=== PATIENT | female | born 1955 ===

== ENCOUNTER 2016-09-08 13:42 | Emergency (ER) | payer OTHER ==
[2016-09-08 14:08] VITALS: BMI 24.3
[2016-09-08 14:14] VITALS: BP 134/79; PULSE 93; RESP 20; TEMP 98.2; O2SAT 98
--- NOTE | 2016-09-08 14:28 | C.PDOC ---
History Of Present Illness 61 year old female with PMHx of HLD and DM presents with complaint of right foot pain that has worsened x3 days. Patient had right foot osteotomy in two locations on 07/11/[address] Riley. She has been following up with Dr Riley regularly and had the CHALO bandage changed on 09/05. She believes the dressing was wrapped too tightly and that is why she is having pain. She admits that she gets pain in her foot regularly due to her diabetic neuropathy. She states that she has been taking Ibuprofen daily for her pain but that over the past 3 days she has had worsening anterior right foot burning. Last night the patient says she had a subjective fever. Patient became concerned of infection underneath the cast so she came to the ED. Denies chills, nausea, vomiting, calf pain, numbness, tingling, headache, dizziness, chest pain, palpitations, and SOB. All other ROS negative. Patient's next appointment with Dr Riley is on 09/12/16. (April Adams) History Per: Patient, Family (daughter at bedside) History/Exam Limitations: no limitations Onset/Duration Of Symptoms: Days Current Symptoms Are (Timing): Still Present Severity: Moderate Pain Scale Rating Of: 8 Recent travel outside of the [place]: No Additional History Per: Family (daughter) - Ankle/Foot Description Of Injury: Other (s/p surgery ) Time Seen by Provider: 09/08/16 13:54 Chief Complaint (Nursing): Lower Extremity Problem/Injury Past Medical History - Medical History PMH: Arthritis, Diabetes, Hypercholesterolemia Denies: Chronic Kidney Disease Surgical History: Family History: States: Unknown Family Hx - Social History Hx Tobacco Use: No Hx Alcohol Use: No Hx Substance Use: No - Immunization History Hx Tetanus Toxoid Vaccination: Yes Hx Influenza Vaccination: Yes Hx Pneumococcal Vaccination: No Vital Signs: Last Vital Signs Temp 98.2 F 09/08/16 14:11 Pulse 93 H 09/08/16 14:11 Resp 20 09/08/16 14:11 BP 134/79 09/08/16 14:11 Pulse Ox 98 09/08/16 14:39 - [facility] Procedures MEASURE OF CARDIAC SAMPL & PRESSURE, L HEART, PERC APPROACH (04/18/16) PLAIN RADIOGRAPHY OF LEFT HEART USING OTHER CONTRAST (04/18/16) PLAIN RADIOGRAPHY OF MULT COR ART USING OTH CONTRAST (04/18/16) Review Of Systems Except As Marked, All Systems Reviewed And Found Negative. Musculoskeletal: Positive for: Foot Pain (right anterior foot pain, toe pain ) Physical Exam - Physical Exam Appears: Well, Non-toxic, No Acute Distress Skin: Normal Color, Warm, Dry Head: Atraumatic, Normacephalic Eye(s): bilateral: Normal Inspection, PERRL, EOMI Oral Mucosa: Moist Throat: Normal Cardiovascular: Rhythm Regular Respiratory: Normal Breath Sounds Back: Normal Inspection Extremity: Normal ROM, No Pedal Edema, No Swelling, Other (Right lower extremity initially wrapped in dressing, dry and intact. Dressing removed- right anterior foot dry, no open wounds, no lesions, surgery incision sites dry and intact, no drainage, no swelling, no erythema, sensation to light touch intact, tenderness to palpation of anterior foot, 2+ pedal pulses, warm to touch , no erythema, no swelling of right calf, negative Nia's sign) Pulses: Right Dorsalis Pedis: Normal Neurological/Psych: Oriented x3, Normal Speech, Normal Cognition Pain Response: Withdraws With Pain ED Course And Treatment O2 Sat by Pulse Oximetry: 98 Progress Note: Dressing unwrapped, lower extremity examined and loosely re- wrapped with clean dressing. Patient's pain improved after dressing changed. Reevaluation Time: 14:35 Reassessment Condition: Improved Medical Decision Making Medical Decision Making: Seen and examined with resident. Foot pain after surgery, has f/u soon, wound appears well healing without infection. (Chip Alan) Disposition Discussed With : Chip [facility] Doctor Will See Patient In The: Office Counseled Patient/Family Regarding: Diagnosis, Need For Followup - Disposition Disposition Time: 14:36 - POA Present On Arrival: None - Disposition Referrals: Guillermina Riley DPM [Staff Provider] - Disposition: HOME/ ROUTINE Additional Instructions: Patient is to see Dr Riley in her office on Monday09/12/16. She should take Ibuprofen for her pain. Patient advised to keep extremity dressing loose as the tighter dressing will cause her pain. If patient experiences recurrence of her symptoms or has any other concerns she should return to the ED. Instructions explained to the patient who understands. Forms: Gen Discharge Inst Malawian Print Language: YAKUT - Clinical Impression Clinical Impression: Pain
== END 2016-09-08 15:13 | disposition home or self-care (01) ==
LOC: C.ER 13:42
DX: M79.671 Pain in right foot (principal); Z48.01 Encounter for change or removal of surgical wound dressing

== ENCOUNTER 2016-10-04 08:39 | Day surgery (SDC) | payer SELFPAY ==
[2016-10-04 09:25] VITALS: BMI 25.8
[2016-10-04] MEDS ORDERED: Midazolam 2 MG/2 ML VIAL ONE (09:44)
[2016-10-04] MEDS ORDERED: Propofol 10 mg/ml Inj (20 ML) ONE ×3 (09:44→10:53)
[2016-10-04 09:46] VITALS: RESP 16; TEMP 98; O2SAT 100
--- NOTE | 2016-10-04 10:17 | CP.SDSHP ---
Same Day Surgery H & P - History Proposed Procedure: EGD. Colonoscopy Pre-Op Diagnosis: epigastric pain. screening for colon cancer - Previous Medical/Surgical History Cardiac: Hypertension Endocrine/Metabolic: Diabetes - Allergies Allergies: Allergies No Known Allergies Allergy (Verified 09/08/16 14:08) - Current Medications Current Medications: see med list - Physical Exam General Appearance: NAD Vital Signs: Vital Signs 10/04/16 09:42 Temperature 98 F Pulse Rate 76 Respiratory 16 Rate Blood Pressure 134/69 O2 Sat by Pulse 100 Oximetry Mental Status: Alert & Oriented x3 Heart: WNL Lungs: WNL GI: WNL - {Optional Preform as Required} Abdomen: WNL - Impression Impression: 61 year old female with h/o HTN, DM here for evaluation of dyspepsia and screening for colon cancer Pt. Evaluated Today:Candidate for Anesthesia & Procedure: Yes - Date & Time Date: 10/04/16 Time: 10:17 Short Stay Discharge - Short Stay Discharge Admitting Diagnosis/Reason for Visit: EPIGASTRIC PAIN,ENCOUNTER FOR SCREENING FOR MALIGN Disposition: HOME/ ROUTINE
[2016-10-04] MEDS ORDERED: Lactated Ringer's 500 ML IV ONE (10:28)
[2016-10-04 12:16] VITALS: BP 129/69; PULSE 73
== END 2016-10-04 12:20 | disposition home or self-care (01) ==
LOC: C.ENDO 08:39
PROVIDERS: ATTEND Internal Medicine Gastroenterology
DX: K21.0 Gastro-esophageal reflux disease with esophagitis (principal); K29.50 Unspecified chronic gastritis without bleeding; K29.80 Duodenitis without bleeding; Z12.11 Encounter for screening for malignant neoplasm of colon; D12.4 Benign neoplasm of descending colon
CPT/HCPCS: 43239; 45380; 82948; 88305; 88312; 88342; J2001; J2250; J2704; J7120

== ENCOUNTER 2016-11-04 09:45 | Emergency (ER) | payer OTHER ==
[2016-11-04 09:45] VITALS: BMI 25.8
--- NOTE | 2016-11-04 11:06 | C.PDOC ---
History Of Present Illness 61-year-old female, PMHx includes Arthritis and Diabetes, presents to the emergency department with complaints of worsening right foot swelling for the past four months. Patient is s/p bunion surgery, and has been following with internal combustion engine assembler on monthly basis. Patient states internal combustion engine assembler is aware of swelling, but it has worsened over the past three days, resulting in her coming to the ED for evaluation. Denies numbness/weakness, any new trauma, erythema, bleeding, discharge, or any other associated symptoms. No other complaints at this time. Time Seen by Provider: 11/04/16 10:51 Chief Complaint (Nursing): Lower Extremity Problem/Injury History Per: Patient History/Exam Limitations: no limitations Onset/Duration Of Symptoms: Days Current Symptoms Are (Timing): Still Present Severity: Moderate Past Medical History Reviewed: Historical Data, Nursing Documentation, Vital Signs Vital Signs: Last Vital Signs Temp 98.0 F 11/04/16 12:29 Pulse 77 11/04/16 12:29 Resp 16 11/04/16 12:29 BP 147/80 11/04/16 12:29 Pulse Ox 100 11/04/16 12:29 - Medical History PMH: Arthritis, Diabetes, Hypercholesterolemia Denies: Chronic Kidney Disease Surgical History: - [facility] Procedures MEASURE OF CARDIAC SAMPL & PRESSURE, L HEART, PERC APPROACH (04/18/16) PLAIN RADIOGRAPHY OF LEFT HEART USING OTHER CONTRAST (04/18/16) PLAIN RADIOGRAPHY OF MULT COR ART USING OTH CONTRAST (04/18/16) Family History: States: Unknown Family Hx - Social History Hx Tobacco Use: No Hx Alcohol Use: No Hx Substance Use: No - Immunization History Hx Tetanus Toxoid Vaccination: Yes Hx Influenza Vaccination: Yes Hx Pneumococcal Vaccination: Yes Review Of Systems Except As Marked, All Systems Reviewed And Found Negative. Constitutional: Negative for: Fever Respiratory: Negative for: Shortness of Breath Gastrointestinal: Negative for: Vomiting Skin: Negative for: Rash Neurological: Positive for: Other (swelling of right foot ) Physical Exam - Physical Exam Appears: Non-toxic, No Acute Distress Skin: Warm, Dry, No Rash Neck: Normal ROM Respiratory: No Accessory Muscle Use Extremity: Tenderness (MILD), Capillary Refill (<2 SECONDS), No Deformity, Swelling, Other (R Foot: NON PITTING EDEMA. ) Neurological/Psych: Oriented x3 ED Course And Treatment - Laboratory Results Result Diagrams: 11/04/16 11:30 11/04/16 11:30 O2 Sat by Pulse Oximetry: 99 - Other Rad DOPPLER RLE X-Ray: Read By Radiologist (NEG) Disposition Counseled Patient/Family Regarding: Studies Performed, Diagnosis, Need For Followup, Rx Given - Disposition Referrals: YOUR,SAP SPECIALIST [Other] Disposition: HOME/ ROUTINE Disposition Time: 12:11 Condition: GOOD Additional Instructions: USTED TIENE NOLAN PRUEBA NEGATIVA DE DVT. JUSTICE ANTIBITICOS SHEREE SE PRESCRIBE. TOME MOTRIN 3 TABAS CADA 6 HORAS. REAGAN MICHEL PODIATRA SHEREE SE PROGRAM. Prescriptions: Amoxicillin/Clavulanate [Augmentin 875 MG-125 MG] 1 tab PO BID #14 tab Instructions: Leg Edema (ED) Print Language: VINCENTIAN - Clinical Impression Clinical Impression: Leg swelling - Scribe Statement The provider has reviewed the documentation as recorded by the Scribmatti Rodriguez All medical record entries made by the Scribe were at my direction and personally dictated by me. I have reviewed the chart and agree that the record accurately reflects my personal performance of the history, physical exam, medical decision making, and the department course for this patient. I have also personally directed, reviewed, and agree with the discharge instructions and disposition.
--- NOTE | 2016-11-04 11:28 | RAD ---
Right Foot Radiographs. History: PAIN SP BUNION SURG Comparison: Left foot radiographs performed 09/28/092016 Findings: Diffuse osseous demineralization limits evaluation for acute fracture lines. Evidence of 1st metatarsal osteotomy for bunionectomy with metallic plate and screw fixation providing stabilization at the osteotomy site. Screws noted at the distal 2nd metatarsal. Degenerative changes including calcaneal enthesophyte and heel spur. No acute displaced fracture or dislocation identified. Soft tissue swelling. Impression: Diffuse osseous demineralization. Similar-appearing postoperative changes. Soft tissue swelling.
[2016-11-04 11:42] LABS: BASO % 0.4 % (0.0-2.0); EOS # 0.2 K/uL (0.0-0.7); EOS % 2.6 % (0.0-4.0); HEMATOCRIT 40.4 % (34.0-47.0); LYMPH # 3.3 K/uL (1.0-4.3); LYMPH % 44.9 % (20.0-40.0); MEAN CELL VOLUME 84.8 fL (81.0-99.0); MEAN CORPUSCULAR HGB CONC 33.1 g/dL (33.0-37.0); MEAN PLATELET VOLUME 8.7 fL (7.2-11.7); MONO # 0.5 K/uL (0.0-0.8); MONO % 6.7 % (0.0-10.0); RED CELL DISTRIBUTION WIDTH 14.2 % (11.5-14.5); WHITE BLOOD COUNT 7.3 K/uL (4.8-10.8)
[2016-11-04 11:53] LABS: CHLORIDE 99 mmol/L (98-107)
[2016-11-04 11:54] LABS: POTASSIUM 4.3 mmol/L (3.6-5.2); SODIUM 136 mmol/L (132-148)
[2016-11-04 11:56] LABS: CARBON DIOXIDE 27 mmol/L (22-30); GFR AFRICAN-AMERICAN > 60
[2016-11-04 11:57] LABS: BLOOD UREA NITROGEN 13 mg/dL (7-17); CALCIUM 8.6 mg/dl (8.6-10.4); GLUCOSE,RANDOM 240 mg/dL (65-105)
[2016-11-04] MEDS ORDERED: Amoxicillin-Clav 875-125 mg Tab PO STA (12:10)
[2016-11-04] MEDS ORDERED: Amoxicillin-Clav 875-125 mg Tab PO ONE (12:22)
[2016-11-04 12:30] VITALS: BP 147/80; PULSE 77; RESP 16; TEMP 98
[2016-11-04 13:22] VITALS: O2SAT 99
--- NOTE | 2016-11-04 15:50 | VASCLAB ---
PROCEDURE: Right Lower Extremity Venous Duplex Exam. HISTORY: Leg swelling PRIORS: None. TECHNIQUE: Right common femoral, femoral, popliteal and posterior tibial, peroneal and great saphenous veins were evaluated. Flow was assessed with color Doppler, compressibility, assessment of phasic flow and augmentation response. Report prepared by BEATRICE Devine, RVT FINDINGS: RIGHT: 1. Common Femoral Vein: 1.1. Compressibility - Fully compressible: Thrombus - None: Flow - Phasic: Augmentation -Normal: Reflux - None. 2. Femoral Vein: 2.1. Compressibility - Fully compressible: Thrombus - None: Flow - Phasic: Augmentation -Normal: Reflux - None. 3. Popliteal Vein: 3.1. Compressibility - Fully compressible: Thrombus - None: Flow - Phasic: Augmentation -Normal: Reflux - None. 4. Posterior Tibial Vein: 4.1. Compressibility - Fully compressible: Thrombus - None: Flow - Phasic: Augmentation -Normal: Reflux - None. 5. Peroneal Vein: 5.1. Compressibility - Fully compressible: Thrombus - None: Flow - Phasic: Augmentation -Normal: Reflux - None. 6. Great Saphenous Vein: 6.1. Compressibility - Fully compressible: Thrombus -None: Flow - Phasic: Augmentation - Normal: Reflux - None. OTHER FINDINGS: IMPRESSION: No evidence of deep or superficial vein thrombosis of the right lower extremity with excellent venous flow. Normal valve function noted of the right side. Normal venous flow noted in the left common femoral vein.
== END 2016-11-04 12:29 | disposition home or self-care (01) ==
LOC: C.ER 09:45
DX: M79.89 Other specified soft tissue disorders (principal)

== ENCOUNTER 2018-02-15 13:55 | Emergency (ER) | payer SELFPAY ==
[2018-02-15 13:55] VITALS: BMI 25.2
[2018-02-15 14:18] VITALS: BP 120/76; PULSE 87; RESP 18; TEMP 98.4; O2SAT 97
--- NOTE | 2018-02-15 14:53 | C.PDOC ---
History Of Present Illness 62 year old female presents to the ER with a complaint of right foot pain worsening over the past 2 days. Patient reports having surgical bunionectomy to the foot 2 years ago. She has been taking ibuprofen with some relief. Denies weakness or numbness. Time Seen by Provider: 02/15/18 14:23 Chief Complaint (Nursing): Lower Extremity Problem/Injury History Per: Patient History/Exam Limitations: no limitations Onset/Duration Of Symptoms: Days Current Symptoms Are (Timing): Still Present Recent travel outside of the [place]: No Past Medical History Reviewed: Historical Data, Nursing Documentation, Vital Signs Vital Signs: Last Vital Signs Temp 98.4 F 02/15/18 14:15 Pulse 87 02/15/18 14:15 Resp 18 02/15/18 15:09 BP 120/76 02/15/18 14:15 Pulse Ox 97 02/15/18 15:15 - Medical History PMH: Arthritis, Diabetes, Hypercholesterolemia Denies: Chronic Kidney Disease Surgical History: - [facility] Procedures MEASURE OF CARDIAC SAMPL & PRESSURE, L HEART, PERC APPROACH (04/18/16) PLAIN RADIOGRAPHY OF LEFT HEART USING OTHER CONTRAST (04/18/16) PLAIN RADIOGRAPHY OF MULT COR ART USING OTH CONTRAST (04/18/16) Family History: States: Unknown Family Hx - Social History Hx Tobacco Use: No Hx Alcohol Use: No Hx Substance Use: No - Immunization History Hx Tetanus Toxoid Vaccination: Yes Hx Influenza Vaccination: Yes Hx Pneumococcal Vaccination: Yes Review Of Systems Musculoskeletal: Positive for: Foot Pain Neurological: Negative for: Weakness, Numbness Physical Exam - Physical Exam Appears: Non-toxic Skin: Normal Color, Warm, Dry Head: Atraumatic, Normacephalic Eye(s): bilateral: Normal Inspection Extremity: Normal ROM (x4), Tenderness (Mild to 2nd MTP of right foot), Capillary Refill (<2 seconds), Deformity (right foot second toe overlaps the great toe), No Swelling, No Other (Erythema) Pulses: Left Dorsalis Pedis: Normal, Right Dorsalis Pedis: Normal Neurological/Psych: Oriented x3, Normal Speech, Normal Motor, Normal Sensation Gait: Steady ED Course And Treatment O2 Sat by Pulse Oximetry: 97 (Room air) Pulse Ox Interpretation: Normal - Other Rad Right foot x-ray X-Ray: Viewed By Me, Read By Radiologist Interpretation: PROCEDURE: Right Foot Radiographs. HISTORY: pain 1st and 2nd toes hx sx. COMPARISON: Right foot radiographs dated 11/04/2016. FINDINGS: BONES: No acute fracture. For postsurgical changes in the 1st metatarsal and 2nd metatarsal head. JOINTS: Joint space narrowing. SOFT TISSUES: Normal. OTHER FINDINGS: None. IMPRESSION: No acute fracture. Degenerative changes. Postsurgical changes in the 1st and 2nd metatarsals. Medical Decision Making Medical Decision Making: Patient with toe pain for 2 days, no trauma. no signs of cellulitis or gout. Right foot-ray ordered, results were negative. Will discharge home with Rx and given instructions to follow up with podiatry for further evaluation. Disposition Counseled Patient/Family Regarding: Diagnosis, Need For Followup, Rx Given - Disposition Referrals: [facility] [employer] [facility] [employer] [facility] [Outside] Disposition: HOME/ ROUTINE Disposition Time: 15:01 Condition: GOOD Additional Instructions: Rx sent to [facility] Aplique elisabeth en el yesica 15 minutos erma veces al da o empape el pie en agua tibia. [place] Motrin cuando sea necesario para el dolor cada 6 horas, con alimentos para no alterar el estmago. Seguimiento con podologa Prescriptions: Ibuprofen [Motrin] 600 mg PO Q8 #30 tab Instructions: Muscle and Bone Pain (DC) Print Language: WOLOF - POA Present On Arrival: None - Clinical Impression Clinical Impression: Right foot pain - PA / INCREMENT MANAGER / Resident Statement MD/DO has reviewed & agrees with the documentation as recorded. - Scribe Statement The provider has reviewed the documentation as recorded by the Scribe Phong Hanson All medical record entries made by the Scribe were at my direction and personally dictated by me. I have reviewed the chart and agree that the record accurately reflects my personal performance of the history, physical exam, medical decision making, and the department course for this patient. I have also personally directed, reviewed, and agree with the discharge instructions and disposition.
--- NOTE | 2018-02-15 15:11 | RAD ---
Date of service: 02/15/2018 PROCEDURE: Right Foot Radiographs. HISTORY: pain 1st and 2nd toes hx sx COMPARISON: Right foot radiographs dated 11/04/2016. FINDINGS: BONES: No acute fracture. For postsurgical changes in the 1st metatarsal and 2nd metatarsal head. JOINTS: Joint space narrowing. SOFT TISSUES: Normal. OTHER FINDINGS: None. IMPRESSION: No acute fracture. Degenerative changes. Postsurgical changes in the 1st and 2nd metatarsals.
== END 2018-02-15 15:10 | disposition home or self-care (01) ==
LOC: C.ER 13:55
DX: M79.671 Pain in right foot (principal); E11.9 Type 2 diabetes mellitus without complications; E78.00 Pure hypercholesterolemia, unspecified

== ENCOUNTER 2018-04-15 15:48 | Emergency (ER) | payer SELFPAY ==
[2018-04-15 15:49] VITALS: BMI 25.2
[2018-04-15 16:08] VITALS: BP 155/80; PULSE 80; RESP 20; TEMP 98.1; O2SAT 97
--- NOTE | 2018-04-15 16:54 | C.PDOC ---
History Of Present Illness 62 year old female presents to the ED complaining of right knee pain for two days status post tripping and falling at home onto right knee. Reports she also struck right shoulder. States she took Advil and should pain improved but knee still hurts and is swollen and bruised. Denies weakness, numbness. Denies any other injuries. Time Seen by Provider: 04/15/18 16:25 Chief Complaint (Nursing): Lower Extremity Problem/Injury History Per: Patient History/Exam Limitations: no limitations Onset/Duration Of Symptoms: Days (2) Current Symptoms Are (Timing): Still Present - Knee Description Of Injury: Fell Past Medical History Reviewed: Historical Data, Nursing Documentation, Vital Signs Vital Signs: Last Vital Signs Temp 98.1 F 04/15/18 16:04 Pulse 80 04/15/18 16:04 Resp 20 04/15/18 16:04 BP 155/80 H 04/15/18 16:04 Pulse Ox 97 04/15/18 16:04 - Medical History PMH: Arthritis, Diabetes, Hypercholesterolemia Denies: Chronic Kidney Disease Surgical History: - [facility] Procedures MEASURE OF CARDIAC SAMPL & PRESSURE, L HEART, PERC APPROACH (04/18/16) PLAIN RADIOGRAPHY OF LEFT HEART USING OTHER CONTRAST (04/18/16) PLAIN RADIOGRAPHY OF MULT COR ART USING OTH CONTRAST (04/18/16) Family History: States: No Known Family Hx - Social History Hx Tobacco Use: No Hx Alcohol Use: No Hx Substance Use: No - Immunization History Hx Tetanus Toxoid Vaccination: Yes Hx Influenza Vaccination: Yes Hx Pneumococcal Vaccination: Yes Review Of Systems Musculoskeletal: Positive for: Shoulder Pain (right), Other (right knee pain) Neurological: Negative for: Weakness, Numbness Physical Exam - Physical Exam Appears: Non-toxic, No Acute Distress Skin: Warm, Dry Head: Normacephalic Eye(s): bilateral: Normal Inspection Nose: Normal Oral Mucosa: Moist Neck: Supple Chest: Symmetrical Cardiovascular: Rhythm Regular Respiratory: Normal Breath Sounds, No Rales, No Rhonchi, No Wheezing Extremity: No Normal ROM (pain with flexion of right knee), No Calf Tenderness, Capillary Refill (less than 2 sec to right shoulder and right knee), No Deformity, Swelling (anterior right knee), Other ((+) ecchymosis of anterior right knee) Extremity: Right: Normal ROM (right shoulder ), Bilateral: Normal Color And Temperature Neurological/Psych: Oriented x3, Normal Speech, Normal Sensation, Normal Reflexes Gait: Steady ED Course And Treatment O2 Sat by Pulse Oximetry: 97 (RA) Pulse Ox Interpretation: Normal - Other Rad XR right knee X-Ray: Viewed By Me, Read By Radiologist Interpretation: Accession No. : [id number]. Patient Name / ID : MICHAEL PALOMO / [id number]. Exam Date : 04/15/2018 16:38:08 ( Approved ). Study Comment : Sex / Age : F / 62Y. Creator : Tommy Edgar MD. Dictator : Tommy Edgar MD. Neuro Ophthalmologist : Time Signal Wirer : Tommy Edgar MD. Approver2 : Report Date : 04/15/2018 17:29:55. My Comment : . Date of service: 04/15/2018. PROCEDURE: Right Knee Radiographs. HISTORY: pain s.p fall. COMPARISON: None. FINDINGS: BONES: No acute fracture. JOINTS: Tricompartmental narrowing with degenerative spurring, worst in the patellofemoral compartment. JOINT EFFUSION: None. OTHER FINDINGS: Quadriceps tendon enthesophyte. IMPRESSION: No demonstrated fracture or dislocation. Tricompartmental degenerative changes. Medical Decision Making Medical Decision Making: Plan - XR right knee - Tylenol 650mg PO On re-eval, patient reports feeling better. X-ray of right knee shows no fracture/dislocation. Knee immobilzer applied by CP. Patient feels comfortable going home and will be discharged. Patient given follow up instructions. Instructed to return to ER if symptoms worsen or new symptoms arise. Disposition Counseled Patient/Family Regarding: Diagnosis, Need For Followup, Rx Given - Disposition Referrals: Gin Cassidy MD [Staff Provider] - Disposition: HOME/ ROUTINE Disposition Time: 16:52 Condition: STABLE Additional Instructions: Your xray was normal, no fracture. Please apply ice to area 15 minutes three times a day. Take Motrin as needed for pain every 6 hours, with food to not upset stomach. Follow up with orthopedic if pain persists over one week Tu radiografa era normal, sin fracturas. Por favor aplique hielo al yesica 15 minutos erma veces al da. [place] Motrin segn sea necesario para el dolor cada 6 horas, con alimentos que no molesten el estmago. Seguimiento con ortopedia si el dolor persiste moisés monty semana. Prescriptions: Ibuprofen [Motrin] 600 mg PO Q8 #30 tab Instructions: Contusion (DC) Forms: [employer] (Z[place]an) Print Language: SCOTTISH - POA Present On Arrival: None - Clinical Impression Clinical Impression: Contusion, knee - PA / TRADE UNION SECRETARY / Resident Statement MD/DO has reviewed & agrees with the documentation as recorded. - Scribe Statement The provider has reviewed the documentation as recorded by the Dottieibmatti Henriquez All medical record entries made by the Scribe were at my direction and personally dictated by me. I have reviewed the chart and agree that the record accurately reflects my personal performance of the history, physical exam, medical decision making, and the department course for this patient. I have also personally directed, reviewed, and agree with the discharge instructions and disposition.
--- NOTE | 2018-04-15 17:33 | RAD ---
Date of service: 04/15/2018 PROCEDURE: Right Knee Radiographs. HISTORY: pain s.p fall COMPARISON: None. FINDINGS: BONES: No acute fracture. JOINTS: Tricompartmental narrowing with degenerative spurring, worst in the patellofemoral compartment. JOINT EFFUSION: None. OTHER FINDINGS: Quadriceps tendon enthesophyte. IMPRESSION: No demonstrated fracture or dislocation. Tricompartmental degenerative changes.
== END 2018-04-15 17:22 | disposition home or self-care (01) ==
LOC: C.ER 15:48
DX: S80.01XA Contusion of right knee, initial encounter (principal); W01.0XXA Fall on same level from slipping, tripping and stumbling without subsequent striking against object, initial encounter; Y92.009 Unspecified place in unspecified non-institutional (private) residence as the place of occurrence of the external cause; E11.9 Type 2 diabetes mellitus without complications; E78.00 Pure hypercholesterolemia, unspecified